=== PATIENT | male | born 1980 | race Two or more races ===

== ENCOUNTER → 2024-04-17 | Outpatient (CLI) | payer MEDICAID, SELFPAY ==
--- NOTE | 2024-04-17 11:30 | XR_ITS ---
Examination: Thyroid sonography complete Technique: Grayscale sonographic images thyroid lobes are carful analysis Exam date and time: April 14, 2024 1104 hrs. Indications: Elevated TSH on laboratory examination performed 2 months ago. Findings: Right thyroid 3.9 cm no solid nodules Left thyroid 4.2 cm no solid nodules Impression: Negative study Consider correlation with oral I-123 thyroid uptake and scan
== END | disposition home or self-care (01) ==
PROVIDERS: PCP Physician Assistant; Referring Provider Physician Assistant; Visit Provider Physician Assistant
DX: R94.6 Abnormal results of thyroid function studies (principal)
CPT/HCPCS: 76536

== ENCOUNTER 2025-01-30 07:35 | Emergency (ER) | payer MEDICAID, SELFPAY ==
--- NOTE | 2025-01-30 07:45 | XR_ITS ---
Examination: Shoulder, , 3 views Technique: Shoulder AP internal rotation, AP external rotation, Y view shoulder, 3 views Exam date and time : 01/30/2025 at 7:55 a.m. CLINICAL HISTORY: Shoulder pain for 1 day no trauma FINDINGS: There are degenerative osteophytes along the superior margin of the acromion process. There is extremely minor DJD in the acromion clavicular The glenohumeral joint and scapula and humerus and all visible left ribs appear normal. The rotator space above the humeral head is perfectly normal IMPRESSION: 1. There are minimal degenerative changes in the acromioclavicular joint and there are prominent calcified osteophytes along the superior margin of the acromion process 2. Otherwise the shoulder films are entirely normal
[2025-01-30 07:47] VITALS: BP 128/86; PULSE 86; RESP 18; TEMP 36.6; O2SAT 96; BMI 33.9
[2025-01-30] MEDS: DIAZEPAM 5 MG TABLET 10 MG PO (07:59)
[2025-01-30] MEDS: KETOROLAC INJ 30 MG/ML VIAL IM (07:59)
--- NOTE | 2025-01-30 09:42 | PD.EDUPEX ---
Upper Extremity Injury RME/HPI General Chief Complaint: Extremity Injury, Upper Stated Complaint: left shoulder pain since last pm Time Seen by Provider: 01/30/25 07:40 Arrival date/time: 01/30/25 07:35 44-year-old male presents to the emergency department today for complaints of left shoulder pain patient reports pain worse with movement of the left shoulder Limitations: no limitations Related Data Home Medications ?Medication ?Instructions ?Recorded ?Confirmed ibuprofen 200 mg tablet 400 mg PO Q6HR PRN PAIN ##0 06/02/13 tramadol 50 mg tablet (Ultram) 50 mg PO Q4HR PRN PAIN #0 tabs 06/02/13 Previous Rx's ?Medication ?Instructions ?Recorded tramadol 37.5 mg-acetaminophen 325 1 tab PO Q8H PRN pain #15 tabs 09/19/23 mg tablet cyclobenzaprine 10 mg tablet 10 mg PO TID PRN muscle spasm 10 01/30/25 days #30 tab-caps ibuprofen 800 mg tablet 800 mg PO TID PRN pain #30 tabs 01/30/25 tramadol 50 mg tablet 50 mg PO BID PRN pain #6 tabs 01/30/25 Allergies Allergy/AdvReac Type Severity Reaction Status Date / Time sulfamethoxazole Allergy Mild Rash Verified 01/30/25 07:37 trimethoprim Allergy Mild Rash Verified 01/30/25 07:37 Review of Systems Review of Systems Systems Reviewed: All systems reviewed, normal except as documented Constitutional Constitutional: Reports system reviewed and no additional complaints, except as documented, Denies fever(s) and Denies headache(s) Eyes Eyes: Reports system reviewed and no additional complaints, except as documented and Denies blurry vision ENT Ears, Nose, Mouth, and Throat: Reports system reviewed and no additional complaints, except as documented, Denies headache(s), Denies nasal congestion, Denies nasal discharge and Denies neck pain Cardiovascular Cardiovascular: Reports system reviewed and no additional complaints, except as documented, Denies chest pain and Denies dyspnea Respiratory Respiratory: Reports system reviewed and no additional complaints, except as documented, Denies chest congestion, Denies cough and Denies dyspnea Gastrointestinal Gastrointestinal: Reports system reviewed and no additional complaints, except as documented and Denies abdominal pain Musculoskeletal Musculoskeletal: Reports system reviewed and no additional complaints, except as documented, Reports arthralgias, Denies back pain, Denies deformity, Denies neck pain, Denies numbness, Reports stiffness and Denies tingling Integumentary/Breasts Skin/Breast: Reports system reviewed and no additional complaints, except as documented and Denies rash Neurologic Neurologic: Reports system reviewed and no additional complaints, except as documented, Reports as per HPI, Denies headache(s), Denies numbness and Denies tingling Past Medical History Past Medical History CARDIAC: Negative Congestive Heart Failure RESPIRATORY: Negative Chronic Obstructive Pulmonary Disease (COPD) GENITOURINARY: Negative Renal Disease ENDOCRINE: Negative Diabetes Mellitus Type 1 or Diabetes Mellitus Type 2 Social History SMOKING STATUS: Former smoker ED Exam General Limitations: Present no limitations General appearance: Present alert and in no apparent distress Head Head exam: Present atraumatic Eye Eye exam: Present normal appearance, PERRL and EOMI ENT ENT exam: Present normal exam, normal oropharynx and mucous membranes moist Neck Neck exam: Present normal inspection, full ROM and trachea midline Chest Chest inspection: Present normal inspection and symmetric chest wall rise Respiratory Respiratory exam: Present normal lung sounds bilaterally Cardiovascular Cardiovascular exam: Present regular rate, normal rhythm and normal heart sounds Abdominal Exam Abdominal exam: Present soft and normal bowel sounds Extremities Exam Extremities exam: Present full ROM, tenderness and normal capillary refill; Absent joint swelling Back Exam Back exam: Present normal inspection and full ROM Neurological Exam Neurological exam: Present alert, oriented X3 and CN II-XII intact Psychiatric Psychiatric exam: Present normal affect and normal mood Skin Skin exam: Present warm, dry, intact and normal color Course Quality Measures none Orders Category Date Time Status sling [Splint / Immobilizer] STAT Care 01/30/25 09:50 Completed XR shoulder LT min 2V Stat Exams 01/30/25 07:45 Completed Diazepam [Valium] Med 01/30/25 07:45 Discontinued 10 mg PO X1 ONE Ketorolac Inj [Toradol Inj] Med 01/30/25 07:45 Discontinued 30 mg IM X1 ONE Vital Signs Vital signs: Vital Signs Temperature 97.8 F 01/30/25 07:47 Pulse Rate 86 01/30/25 07:47 Respiratory Rate 18 01/30/25 07:47 Blood Pressure 128/86 H 01/30/25 07:47 Pulse Oximetry (%) 96 01/30/25 07:47 Oxygen Delivery Method Room Air 01/30/25 07:47 O2 saturation 96% room air with normal limits Extremity Injury MDM Narrative MDM Narrative:: 44-year-old male presents to the emergency department today for complaints of left shoulder pain patient reports pain worse with movement of the left shoulder On exam patient has tenderness of left shoulder patient reports pain worse with movement had the patient take off his jacket when he did he has pain in his left shoulder Patient reports no chest pain or shortness of breath no dizziness or weakness no back pain Imaging of the left shoulder obtained no acute fracture dislocation noted patient does have osteophyte formation Patient given pain medication muscle relaxers which did improve his symptoms Patient placed in a sling Patient discharged home in no distress to follow-up with primary care doctor in the next 24 to 48 hours and for any worsening symptoms to return to the ER immediately Patient data External records reviewed:: [facility] previous records Clinical information provided by:: patient Social determinants that could affect healthcare access:: none Patient has the following chronic illnesses:: History How is presenting disease/condition affected by chronic disease/condition?: uneffected by Evaluation data The following diagnostics were reviewed and interpreted by me:: radiology exam(s) Lab and/or radiology exams considered but not ordered:: Radiology obtained Interpretation Summary: Read by me Medications / Prescriptions Medications or Prescriptions considered but not ordered:: Given Medication administrations:: Medication Administration History Discontinued Medications Diazepam (Diazepam 5 Mg Tablet) 10 mg PO X1 ONE Stop: 01/30/25 07:46 Last Admin: 01/30/25 07:59 Dose: 10 mg Documented By: EDDIE Ketorolac Tromethamine (Ketorolac Inj 30 Mg/Ml Vial) 30 mg IM X1 ONE Stop: 01/30/25 07:46 Last Admin: 01/30/25 07:59 Dose: 30 mg Documented By: EDDIE Given Consultations Consultation(s) initiated? (list below): No Diagnosis Upper Extremity Injury Differential Diagnosis: sprain and strain of wrist and fracture of humerus Most likely diagnosis given after review of the tests above:: Shoulder sprain Admission Indicated Admission indicated?: not indicated Admission Request Was there a request for admission?: No Disposition Plan Disposition Plan: Discharge Discharge Attestation Discharge Attestation: The patient and all family members were given an opportunity to ask questions and understood the discharge instructions. Discharge instructions specifically effects, indications for sooner follow up or return to the emergency department, and the expected course of current diagnosis. Patient condition: Stable Discharge Plan Plan Patient Disposition: HOME (Self Care) Discharge Disposition comment: Stable Prescriptions/Referrals Prescriptions/Med Rec: New cyclobenzaprine 10 mg tablet 10 mg PO TID PRN (Reason: muscle spasm) 10 Days Qty: 30 0RF ibuprofen 800 mg tablet 800 mg PO TID PRN (Reason: pain) Qty: 30 0RF tramadol 50 mg tablet 50 mg PO BID PRN (Reason: pain) Qty: 6 0RF No Action tramadol [Ultram] 50 MG tablet 50 mg PO Q4HR PRN (Reason: PAIN) Qty: 0 Patient Comments: FOR PAIN, NOT TO EXCEED 8 TABS IN 24 HRS ibuprofen 200 MG tablet 400 mg PO Q6HR PRN (Reason: PAIN) Qty: 0 tramadol-acetaminophen 37.5-325 mg tablet 1 tab PO Q8H PRN (Reason: pain) Qty: 15 0RF Referrals: Violette Beltre PA-C [Primary Care Provider, Family Practice] - In 1 week Problem List Clinical Impression: Left shoulder pain Patient/Caregiver Discharge Instructions Education Materials: ED Arthralgia Additional Instructions: Please follow up with your primary care doctor in the next 24-48hrs for any worsening symptoms return here immediately Please bring copy of your x-ray report your PCP should symptoms persist or worsen he may need MRI and further evaluation by specialist Print Language: [place] Stand Alone Forms: Bridget[employer] Award Info., Patient Portal Info Letter REGINO/MICHELLE Supervising Physician REGINO/MICHELLE Supervising Physician: Dr. murray
== END 2025-01-30 09:58 | disposition home or self-care (01) ==
PROVIDERS: Emergency Provider Nurse Practitioner Primary Care; PCP Physician Assistant
DX: M25.512 Pain in left shoulder (principal)
CPT/HCPCS: 73030; 96372; 99283; J1885; A9270